=== PATIENT | female | born 1965 | race Asian ===

== ENCOUNTER 2021-06-29 17:11 | Inpatient (IN) | payer MEDICAID, OTHER, SELFPAY ==
[~2021-06-29] VITALS: Ht 154.9 cm; Wt 84.1 kg
[2021-06-29 19:24] LABS: MEAN CORPUSCULAR HGB CONC 33.8 g/dL (32.4-35.8); MEAN PLATELET VOLUME 7.1 fL (7.4-10.4); PLATELET COUNT 362 x10^3/uL (130-400); RED BLOOD COUNT 3.08 x10^6/uL (3.82-5.3); RED CELL DISTRIBUTION WIDTH 14.8 % (9.6-15.2)
[2021-06-29 19:31] LABS: ALANINE AMINOTRANSFERASE 16 U/L (12-78); ALBUMIN 2.2 g/dL (3.4-5.0); ANION GAP 5 mmol/L (5-15); CALCIUM 7.9 mg/dL (8.5-10.1); CHLORIDE 99 mmol/L (98-107); CREATININE 2.45 mg/dL (0.55-1.02)
[2021-06-29 19:33] LABS: ALKALINE PHOSPHATASE 125 U/L (45-117); BILIRUBIN,TOTAL 0.3 mg/dL (0.2-1.0); TOTAL PROTEIN 8.2 g/dL (6.4-8.2)
--- NOTE | 2021-06-29 20:09 | NUR ---
TASK RN: VS UPDATED.
--- NOTE | 2021-06-29 20:27 | NUR ---
pt to room from lobby
[2021-06-29 20:36] LABS: BAND#(MANUAL) 0.18 x10^3/uL; BANDS%(MANUAL) 3 % (0-7); EOS#(MANUAL) 0.12 x10^3/uL (0.0-0.4); EOS% (MANUAL) 2 % (1-7); LYMPH#(MANUAL) 2.46 x10^3/uL (1-3.4); LYMPHS% (MANUAL) 41 % (22-44); MONOS#(MANUAL) 0.36 x10^3/uL (0.3-2.7); MONOS% (MANUAL) 6 % (2-9); SEG#(MANUAL) 2.88 x10^3/uL (1.8-6.8); SEGS% (MANUAL) 48 % (42-75)
[2021-06-29 20:37] LABS: ANISOCYTOSIS 1+
[2021-06-29 20:38] LABS: <PLATELET ESTIMATE> ADEQUATE; SMALL PLATELETS 1+
--- NOTE | 2021-06-29 20:41 | NUR ---
pt presents to from dialysis clinic, states her catheter is not working. catheter was placed last tuesday. no other sx, vss, nadn.
[2021-06-29] MEDS ORDERED: HYDROcodone/APAP 5/325 TABLET PO ONE (21:00)
--- NOTE | 2021-06-29 21:24 | NUR ---
Dialysis nurse and fan balancer aware of pt needs, plan to admit to run dialysis tomorrow.
[2021-06-29] MEDS: SODIUM CHLORIDE FLUSH 10ML SYR IVF SCH (22:30)
[2021-06-29] MEDS ORDERED: GLUCAGON 1 MG IM PRN (22:30)
[2021-06-29] MEDS ORDERED: ACETAMINOPHEN 325 MG TABLET PO PRN (22:30)
[2021-06-29] MEDS ORDERED: POLYETHYLENE GLYCOL 17 GM PACKET PO PRN (22:30)
[2021-06-29] MEDS ORDERED: HYDROmorphone 2 MG/ML, 1ML IVPush PRN (22:30)
[2021-06-29] MEDS ORDERED: DEXTROSE 50%, 50ML SYRINGE IVPush PRN (22:30)
[2021-06-29] MEDS ORDERED: MELATONIN 5 MG TABLET PO PRN (22:30)
[2021-06-29] MEDS ORDERED: LABETALOL 5MG/ML, 20ML IVPush PRN (22:30)
[2021-06-29] MEDS ORDERED: ONDANSETRON 2MG/ML, 2ML IVPush PRN (22:30)
[2021-06-29] MEDS ORDERED: DEXTROSE 4 GM TAB.CHEW PO PRN (22:30)
[2021-06-29 23:17] LABS: MICROSCOPIC INDICATED
[2021-06-29] MEDS ORDERED: HEPARIN 5,000 UNITS/ML, 1ML ONE (23:26)
[2021-06-29] MEDS ORDERED: HYDROcodone/APAP 5/325 TABLET ONE (23:26)
[2021-06-29] MEDS: HEPARIN 5,000 UNITS/ML, 1ML SQ SCH (23:33)
[2021-06-29] MEDS: INSULIN LISPRO 100 UNITS/ML, PEN SQ-INSULIN SCH (23:35)
--- NOTE | 2021-06-29 23:42 | NUR ---
PT MEDICATED PER ORDER, TOLERATED WELL, VSS, NADN.
--- NOTE | 2021-06-30 03:00 | NUR ---
Received report from PATRICIA Leija. This Rn to assume care.
--- NOTE | 2021-06-30 03:30 | NUR ---
Patient SPO2 decreases while sleeping. Applied O2 via NC at 2lpm.
[2021-06-30 05:18] LABS: BASOPHILS % (AUTO) 1 % (0-1); EOSINOPHILS % (AUTO) 4 % (1-7); LYMPHOCYTES % (AUTO) 57 % (22-44); MEAN CORPUSCULAR HEMOGLOBIN 30.2 pg (27.0-34.8); MEAN CORPUSCULAR HGB CONC 34.1 g/dL (32.4-35.8); MEAN PLATELET VOLUME 6.9 fL (7.4-10.4); MONOCYTES % (AUTO) 8 % (2-9); NEUTROPHILS % (AUTO) 31 % (42-75); PLATELET COUNT 308 x10^3/uL (130-400); RED CELL DISTRIBUTION WIDTH 14.2 % (9.6-15.2)
[2021-06-30 05:29] LABS: ANION GAP 7 mmol/L (5-15); CALCIUM 8.1 mg/dL (8.5-10.1); CHLORIDE 103 mmol/L (98-107); CREATININE 2.44 mg/dL (0.55-1.02)
[2021-06-30] MEDS ORDERED: HEPARIN 5,000 UNITS/ML, 1ML ONE ×2 (05:49→15:00)
[2021-06-30] MEDS: HEPARIN 5,000 UNITS/ML, 1ML SQ SCH ×3 (06:18→22:26)
--- NOTE | 2021-06-30 06:22 | NUR ---
Medicated patient per mar. FS performed and value does not indicate insulin from the sliding scale.
[2021-06-30] MEDS: INSULIN LISPRO 100 UNITS/ML, PEN SQ-INSULIN SCH ×4 (07:00→22:27)
--- NOTE | 2021-06-30 07:01 | NUR ---
RECEIVED REPORT FROM KRYSTLE GOMEZ; PT SLEEPING COMFORTABLY ON HOSPITAL BED, AWAKENS & RESPONDS APPROP TO STAFF, NAD, NO NEEDS AT THIS TIME, CALL LIGHT WITHIN REACH.
--- NOTE | 2021-06-30 07:03 | NUR ---
Report to PATRICIA Fischer. Patient care transferred.
--- NOTE | 2021-06-30 08:03 | NUR ---
PT CONTINUES SLEEPING COMFORTABLY ON HOSPITAL BED, AWAKENS & RESPONDS APPROP TO STAFF, NAD, NO NEEDS AT THIS TIME, CALL LIGHT WITHIN REACH.
--- NOTE | 2021-06-30 08:29 | NUR ---
BREAKFAST TRAY GIVEN
--- NOTE | 2021-06-30 09:04 | NUR ---
PT ABLE TO DOZE OFF COMFORTABLY ON HOSPITAL BED BUT AWAKENS & RESPONDS APPROP TO STAFF, NAD, COMFORT MEASURES PROVIDED, CALL LIGHT WITHIN REACH.
--- NOTE | 2021-06-30 10:03 | NUR ---
PT CONTINUES TO DOZE OFF COMFORTABLY ON HOSPITAL BED BUT AWAKENS & RESPONDS APPROP TO STAFF, NAD, NO NEEDS AT THIS TIME, CALL LIGHT WITHIN REACH.
--- NOTE | 2021-06-30 11:04 | NUR ---
PT UPRIGHT ON HOSPITAL BED AWAKEN & COMFORTABLE, WATCHING TV, RESPONDS APPROP TO STAFF, NAD, COMFORT MEASURES PROVIDED, CALL LIGHT WITHIN REACH.
--- NOTE | 2021-06-30 12:01 | NUR ---
PT REMAINS UPRIGHT ON HOSPITAL BED AWAKE & COMFORTABLE, RESPONDS APPROP TO STAFF, NAD, LUNCH TRAY GIVEN- NO OTHER NEEDS AT THIS TIME, CALL LIGHT WITHIN REACH.
[2021-06-30 12:04] LABS: ABSOLUTE RETICS # 0.038 x10^6/uL (0.5-2.5); RED BLOOD COUNT 2.71 x10^6/uL (3.82-5.3); RETICULOCYTE COUNT % 1.41 % (0.5-1.5)
[2021-06-30] MEDS: SODIUM CHLORIDE FLUSH 10ML SYR IVF SCH ×2 (12:14→22:27)
--- NOTE | 2021-06-30 12:32 | NUR ---
RELIEF RN: PT SITTING UP EATING LUNCH. DENIES ANY NEEDS. WILL CTM.
[2021-06-30] MEDS: MULTIVITS,STRESS FORMULA 1 TABLET PO SCH (12:53)
[2021-06-30] MEDS ORDERED: ARANESP 100 MCG/ML **ESRD SQ SCH (13:00)
[2021-06-30] MEDS ORDERED: ARANESP 40 MCG/ML **ESRD SQ SCH (13:00)
[2021-06-30] MEDS ORDERED: ARANESP 60 MCG/ML **ESRD SQ SCH (13:00)
--- NOTE | 2021-06-30 13:00 | NUR ---
PT LAYING ON HOSPITAL BED AWAKE & COMFORTABLE, RESPONDS APPROP TO STAFF, NAD, COMFORT MEASURES PROVIDED, CALL LIGHT WITHIN REACH.
--- NOTE | 2021-06-30 13:25 | NUR ---
DR PASCUAL AT FOR ROUNDS.
--- NOTE | 2021-06-30 13:35 | NUR ---
PT TO IR
--- NOTE | 2021-06-30 14:05 | NUR ---
PT RETURNED FROM IR, CONTINUES LAYING ON HOSPITAL BED AWAKE & COMFORTABLE, RESPONDS APPROP TO STAFF, NAD, NO NEEDS AT THIS TIME, CALL LIGHT WITHIN REACH.
--- NOTE | 2021-06-30 15:02 | NUR ---
CARDIAC US AT BS, PT LAYING ON HOSPITAL BED AWAKE & COMFORTABLE, RESPONDS APPROP TO STAFF, NAD, NO NEEDS AT THIS TIME, CALL LIGHT WITHIN REACH.
--- NOTE | 2021-06-30 16:03 | NUR ---
PT CONTINUES LAYING ON HOSPITAL BED AWAKE & COMFORTABLE, RESPONDS APPROP TO STAFF, NAD, COMFORT MEASURES PROVIDED, CALL LIGHT WITHIN REACH.
--- NOTE | 2021-06-30 16:35 | NUR ---
SCD'S AT READY FOR NOC USE- ENSURED MACHINE FUNCTIONAL. Addendum: 06/30/21 at 1733 by SARAH PT VERBALIZED/DEMONSTRATED PROPER IS USE- ABLE TO REACH 1250ML; SCD'S AT READY FOR NOC USE- ENSURED MACHINE FUNCTIONAL.
--- NOTE | 2021-06-30 17:24 | NUR ---
REPORT GIVEN TO KRYSTLE GOMEZ
--- NOTE | 2021-06-30 17:29 | NUR ---
Pt to be admitted to [facility], room 375. Report called to PEG.
[2021-06-30 18:05] VITALS: BP 165/83
[2021-06-30] MEDS ORDERED: INSU100V8 SQ (22:39)
[2021-07-01 01:02] VITALS: BP 162/81
[2021-07-01] MEDS: HEPARIN 5,000 UNITS/ML, 1ML SQ SCH ×2 (05:58→15:47)
[2021-07-01 06:06] LABS: BASOPHILS % (AUTO) 1 % (0-1); EOSINOPHILS % (AUTO) 3 % (1-7); LYMPHOCYTES % (AUTO) 53 % (22-44); MEAN CORPUSCULAR HEMOGLOBIN 29.5 pg (27.0-34.8); MEAN CORPUSCULAR HGB CONC 33.5 g/dL (32.4-35.8); MEAN PLATELET VOLUME 6.7 fL (7.4-10.4); MONOCYTES % (AUTO) 9 % (2-9); NEUTROPHILS % (AUTO) 33 % (42-75); PLATELET COUNT 362 x10^3/uL (130-400); RED BLOOD COUNT 2.96 x10^6/uL (3.82-5.3); RED CELL DISTRIBUTION WIDTH 14.4 % (9.6-15.2)
[2021-07-01 06:17] LABS: ALBUMIN 2.1 g/dL (3.4-5.0); ANION GAP 7 mmol/L (5-15); CALCIUM 8.4 mg/dL (8.5-10.1); CHLORIDE 101 mmol/L (98-107); CREATININE 1.91 mg/dL (0.55-1.02)
[2021-07-01 08:06] VITALS: BP 157/89
[2021-07-01] MEDS: INSULIN LISPRO 100 UNITS/ML, PEN SQ-INSULIN SCH ×3 (08:10→17:37)
[2021-07-01] MEDS ORDERED: CEFTRIAXONE 1,000 MG in DEXTROSE 5% 50 ML IVPB SCH (08:30)
[2021-07-01] MEDS: MULTIVITS,STRESS FORMULA 1 TABLET PO SCH (09:56)
[2021-07-01] MEDS: SODIUM CHLORIDE FLUSH 10ML SYR IVF SCH (10:00)
[2021-07-01 12:55] VITALS: BP 164/100
[2021-07-01] MEDS ORDERED: AMLO-211 PO (17:01)
[2021-07-01] MEDS ORDERED: CEFD300C37 PO (17:01)
[2021-07-01] MEDS ORDERED: CEFDINIR 300 MG CAPSULE PO SCH (21:00)
== END 2021-07-01 18:34 | disposition home or self-care (01) | DRG 698 ==
LOC: ED 17:30 → EDIP 22:17 → 3N 06-30 17:21
PROVIDERS: ADMIT Internal Medicine; ATTEND Internal Medicine
PROC: 5A1D70Z Performance of Urinary Filtration, Intermittent, Less than 6 Hours Per Day (ICD-10-PCS; principal; 2021-06-30)
DX: T82.41XA Breakdown (mechanical) of vascular dialysis catheter, initial encounter (principal); N18.6 End stage renal disease; I12.0 Hypertensive chronic kidney disease with stage 5 chronic kidney disease or end stage renal disease; N39.0 Urinary tract infection, site not specified; D64.9 Anemia, unspecified; E11.22 Type 2 diabetes mellitus with diabetic chronic kidney disease; E11.65 Type 2 diabetes mellitus with hyperglycemia; E66.01 Morbid (severe) obesity due to excess calories; E88.09 Other disorders of plasma-protein metabolism, not elsewhere classified; Y71.2 Prosthetic and other implants, materials and accessory cardiovascular devices associated with adverse incidents; Z68.35 Body mass index [BMI] 35.0-35.9, adult; Z86.16 Personal history of COVID-19; Z99.2 Dependence on renal dialysis
CPT/HCPCS: 36415; 36598; 71046; 76000; 80048; 80053; 80069; 81001; 82306; 82728; 82962; 83540; 83550; 84100; 85025; 85045; 87077; 87086; 87186; 93306; 93356; 99285; G0378; J0696; J0882; J1644; J1642; J1815